=== PATIENT | female | born 1990 | race Caucasian/White ===

== ENCOUNTER 2019-02-10 07:12 | Emergency (ER) | payer BC ==
[~2019-02-10] VITALS: Ht 165.1 cm; Wt 82.6 kg
[2019-02-10 07:23] VITALS: BP_SYST 141
--- NOTE | 2019-02-10 07:31 | NUR ---
Patient to ER bed 7 to gown for evaluation. Side rails up. Report given to Rosaura GRIJALVA.
--- NOTE | 2019-02-10 07:35 | NUR ---
Patient presented to ER with pain S/P tonsilectomy 7 days ago. Patient A&Ox4, afebrile, back of throat red tonsilectomy site white, pain 7/10, nausea, patient speaking minimally, C/O coughing up blood last night, C/O difficulty Patient arrived with mother. Mother of patient states tonsilectomy was Sunday of last week out patient surgery. Mother of patient states pt was seen in for pain & swelling Sunday night same day of SX and Pt was seen in Urgent Care and recieved steroid injection and was told"take small sips of water". Mother of patient expressing frustration with Patients level of pain and discomfort.
--- NOTE | 2019-02-10 07:37 | NUR ---
ER Dr. Badillo at bedside examining patient.
[2019-02-10] MEDS ORDERED: NACL 0.9% 1,000 ML IV ONE (07:45)
[2019-02-10] MEDS ORDERED: KETOROLAC TROMETHAMINE 30 MG VIAL IVP ONE (08:00)
--- NOTE | 2019-02-10 08:15 | NUR ---
# 20 gauge angiocath placed to right AC. Use of asceptic technique. Opsite placed over site. Blood return noted. Blood for lab drawn from site. Flushed with 10 cc of normal saline. No evidence of infiltration noted. Patient tolerated well. Medicated per MD orders. IVF infusing with no s/s of infiltration at this time. Will cont to monitor
[2019-02-10 08:30] LABS: BASOPHILS % (AUTO) 0.3 % (0.0-2.0); EOSINOPHILS # (AUTO) 0.1 K/uL (0.0-0.4); EOSINOPHILS % (AUTO) 0.9 % (0.0-4.0); HEMOGLOBIN 13.4 g/dL (12.0-16.0); LYMPHOCYTES % (AUTO) 18.4 % (20.5-51.5); MEAN CORPUSCULAR HEMOGLOBIN 30 pg (27-31); MEAN CORPUSCULAR HGB CONC 34 % (32-36); MEAN CORPUSCULAR VOLUME 90 fL (79.0-98.0); NEUTROPHILS # (AUTO) 7.9 K/uL (1.8-7.7); NEUTROPHILS % (AUTO) 71.4 % (40.0-70.0); PLATELET COUNT (AUTO) 251 K/uL (130-430); RED BLOOD CELL COUNT(AUTO) 4.47 MIL/uL (4.2-6.2); RED CELL DISTRIBUTION WIDTH 13.4 % (9.0-15.0); WHITE BLOOD COUNT (AUTO) 11.1 K/uL (4.8-10.8)
[2019-02-10 08:31] LABS: BILIRUBIN,URINE 2+ (NEGATIVE); CLARITY/URINE CLEAR (CLEAR); COLOR,URINE YELLOW (YELLOW); GLUCOSE,URINE NEGATIVE (NEGATIVE); KETONES,URINE 3+ (NEGATIVE); LEUKOCYTE ESTERASE ,URINE NEGATIVE (NEGATIVE); NITRITE, URINE NEGATIVE (NEGATIVE); PROTEIN URINE NEGATIVE (NEGATIVE)
[2019-02-10 08:34] LABS: BLOOD, URINE TRACE (NEGATIVE)
[2019-02-10 08:42] LABS: CALCIUM 9.1 mg/dL (8.4-11.0); CREATININE 0.73 mg/dL (0.55-1.30); POTASSIUM 3.8 mmol/L (3.5-5.1)
[2019-02-10 08:44] LABS: BACTERIA,URINE RARE /HPF (None Seen); MUCUS,URINE 1+ /LPF (None Seen); RBC,URINE 0-3 /HPF (0-3); WBC,URINE 0-3 /HPF (0-3)
[2019-02-10 08:47] LABS: ALBUMIN 3.2 g/dL (3.4-4.8); TOTAL BILIRUBIN 0.8 mg/dL (0.0-1.0)
[2019-02-10 09:10] VITALS: BP_SYST 141
--- NOTE | 2019-02-10 09:10 | NUR ---
Patient given written and verbal discharge instructions and verbalizes understanding. ER MD discussed with patient the results and treatment provided. Patient in stable condition. ID arm band removed. IV catheter removed intact and dressing applied, no active bleeding. Rx of Augmentin given. Patient educated on pain management and to follow up with PMD. Pain Scale 2/10 tolerable for pt.. Opportunity for questions provided and answered. Medication side effect fact sheet provided.
== END 2019-02-10 09:10 | disposition home or self-care (01) ==
LOC: SED 07:12
DX: G89.18 Other acute postprocedural pain (principal); R07.0 Pain in throat
CPT/HCPCS: 36415; 70360; 80053; 81000; 85025; 96374; 99284; J1885; J7030

== ENCOUNTER 2019-04-04 07:34 | Emergency (ER) | payer BC ==
[~2019-04-04] VITALS: Ht 165.1 cm; Wt 79.4 kg
[2019-04-04 07:35] VITALS: BP_SYST 122
[2019-04-04 08:13] LABS: BILIRUBIN,URINE NEGATIVE (NEGATIVE); CLARITY/URINE CLEAR (CLEAR); COLOR,URINE YELLOW (YELLOW); GLUCOSE,URINE NEGATIVE (NEGATIVE); KETONES,URINE NEGATIVE (NEGATIVE); LEUKOCYTE ESTERASE ,URINE NEGATIVE (NEGATIVE); NITRITE, URINE NEGATIVE (NEGATIVE); PROTEIN URINE NEGATIVE (NEGATIVE); UROBILINOGEN,URINE 0.2 (0.2-1.0)
[2019-04-04] MEDS ORDERED: NACL 0.9% 1,000 ML IV ONE (08:15)
[2019-04-04] MEDS ORDERED: KETOROLAC TROMETHAMINE 30 MG VIAL IVP ONE (08:15)
[2019-04-04 08:23] LABS: BLOOD, URINE TRACE (NEGATIVE)
[2019-04-04 08:25] LABS: BASOPHILS % (AUTO) 0.5 % (0.0-2.0); EOSINOPHILS # (AUTO) 0.3 K/uL (0.0-0.4); EOSINOPHILS % (AUTO) 3.1 % (0.0-4.0); HEMATOCRIT 37.9 % (36-48); HEMOGLOBIN 12.8 g/dL (12.0-16.0); LYMPHOCYTES # (AUTO) 2.2 K/uL (1.0-5.5); LYMPHOCYTES % (AUTO) 23.7 % (20.5-51.5); MEAN CORPUSCULAR HEMOGLOBIN 31 pg (27-31); MEAN CORPUSCULAR HGB CONC 34 % (32-36); MEAN CORPUSCULAR VOLUME 91 fL (79.0-98.0); MONOCYTES # (AUTO) 0.7 K/uL (0.0-1.0); MONOCYTES % (AUTO) 7.6 % (1.7-9.3); NEUTROPHILS # (AUTO) 5.9 K/uL (1.8-7.7); NEUTROPHILS % (AUTO) 65.1 % (40.0-70.0); PLATELET COUNT (AUTO) 227 K/uL (130-430); RED BLOOD CELL COUNT(AUTO) 4.18 MIL/uL (4.2-6.2); RED CELL DISTRIBUTION WIDTH 13.6 % (9.0-15.0); WHITE BLOOD COUNT (AUTO) 9.1 K/uL (4.8-10.8)
[2019-04-04 08:36] LABS: BACTERIA,URINE RARE /HPF (None Seen); MUCUS,URINE 1+ /LPF (None Seen); RBC,URINE 0-3 /HPF (0-3); WBC,URINE 0-3 /HPF (0-3)
[2019-04-04 08:43] LABS: CALCIUM 8.9 mg/dL (8.4-11.0); CREATININE 0.81 mg/dL (0.55-1.30); POTASSIUM 4.2 mmol/L (3.5-5.1)
[2019-04-04 08:48] LABS: ALBUMIN 3.3 g/dL (3.4-4.8); TOTAL BILIRUBIN 0.4 mg/dL (0.0-1.0)
[2019-04-04] MEDS ORDERED: cefTRIAXone 250 MG in LIDOCAINE 1%, 20 ML MDV 0.9 ML IM ONE (10:00)
[2019-04-04] MEDS ORDERED: AZITHROMYCIN 250 MG TABLET PO ONE (10:00)
[2019-04-04 10:15] VITALS: BP_SYST 122
[2019-04-05 08:12] LABS: HEPATITIS A AB, IgM Negative (Negative); HEPATITIS B CORE AB, IgM Negative (Negative); HEPATITIS B SURFACE AG Negative (Negative)
[2019-04-08 16:00] LABS: CHLAMYDIA TRACHOMATIS NAA Negative (Negative)
[2019-04-08 16:01] LABS: NEISSERIA GONORRHOEAE NAA Negative (Negative)
[2019-04-08 20:38] LABS: HSV 2 IgG, TYPE SPECIFIC <0.91
== END 2019-04-04 10:15 | disposition home or self-care (01) ==
LOC: SED 07:34
DX: F41.9 Anxiety disorder, unspecified (principal); F43.9 Reaction to severe stress, unspecified; Z90.49 Acquired absence of other specified parts of digestive tract
CPT/HCPCS: 36415; 80053; 80074; 81000; 81025; 85025; 86592; 86695; 86696; 86710; 87491; 87591; 96372; 96374; 99284; J0696; J1885; J2001; J7030; Q0144

== ENCOUNTER 2019-05-14 00:51 | Emergency (ER) | payer BC ==
[~2019-05-14] VITALS: Ht 165.1 cm; Wt 83.5 kg
[2019-05-14 01:00] VITALS: BP_SYST 147
--- NOTE | 2019-05-14 01:02 | NUR ---
Patient to ER bed 1 to gown for evaluation. Side rails up.
--- NOTE | 2019-05-14 01:10 | NUR ---
ER Dr. Guo at bedside examining patient.
[2019-05-14] MEDS ORDERED: ONDANSETRON HCL 4 MG/2 ML VIAL IVP ONE (01:15)
[2019-05-14] MEDS ORDERED: NACL 0.9% 1,000 ML IV ONE (01:15)
[2019-05-14] MEDS ORDERED: KETOROLAC TROMETHAMINE 15 MG VIAL IVP ONE (01:15)
--- NOTE | 2019-05-14 01:15 | NUR ---
Pt came to the ED for abd pain fo vomiting and constipation since 2 days ago. Reports she has never felt this pain. However, reports that she has had issues with constipation since she was little. Reports that n/v/d or fever. No other complaints/injuries noted. Will cont. to monitor.
[2019-05-14 01:46] LABS: BASOPHILS % (AUTO) 0.3 % (0.0-2.0); EOSINOPHILS # (AUTO) 0.2 K/uL (0.0-0.4); EOSINOPHILS % (AUTO) 1.7 % (0.0-4.0); HEMATOCRIT 37.8 % (36-48); HEMOGLOBIN 12.9 g/dL (12.0-16.0); LYMPHOCYTES # (AUTO) 2.9 K/uL (1.0-5.5); LYMPHOCYTES % (AUTO) 28.1 % (20.5-51.5); MEAN CORPUSCULAR HEMOGLOBIN 31 pg (27-31); MEAN CORPUSCULAR HGB CONC 34 % (32-36); MEAN CORPUSCULAR VOLUME 90 fL (79.0-98.0); MONOCYTES # (AUTO) 0.7 K/uL (0.0-1.0); MONOCYTES % (AUTO) 6.7 % (1.7-9.3); NEUTROPHILS # (AUTO) 6.6 K/uL (1.8-7.7); NEUTROPHILS % (AUTO) 63.2 % (40.0-70.0); PLATELET COUNT (AUTO) 248 K/uL (130-430); RED BLOOD CELL COUNT(AUTO) 4.19 MIL/uL (4.2-6.2); RED CELL DISTRIBUTION WIDTH 13.3 % (9.0-15.0); WHITE BLOOD COUNT (AUTO) 10.5 K/uL (4.8-10.8)
[2019-05-14 01:50] LABS: BILIRUBIN,URINE 1+ (NEGATIVE); BLOOD, URINE 3+ (NEGATIVE); CLARITY/URINE CLEAR (CLEAR); COLOR,URINE YELLOW (YELLOW); GLUCOSE,URINE NEGATIVE (NEGATIVE); KETONES,URINE 1+ (NEGATIVE); LEUKOCYTE ESTERASE ,URINE NEGATIVE (NEGATIVE); NITRITE, URINE NEGATIVE (NEGATIVE); PROTEIN URINE NEGATIVE (NEGATIVE); UROBILINOGEN,URINE 0.2 (0.2-1.0)
[2019-05-14] MEDS ORDERED: FLUO40CA8 PO (01:50)
[2019-05-14] MEDS ORDERED: LORA1TAB PO (01:51)
[2019-05-14 01:57] LABS: BACTERIA,URINE MODERATE /HPF (None Seen); WBC,URINE 0-3 /HPF (0-3)
[2019-05-14 02:03] LABS: CALCIUM 8.5 mg/dL (8.4-11.0); CREATININE 0.78 mg/dL (0.55-1.30); POTASSIUM 3.5 mmol/L (3.5-5.1)
--- NOTE | 2019-05-14 02:03 | NUR ---
Pt went to CT scan via [facility]. Tolerated wel. Will cont. to monitor.
[2019-05-14 02:07] LABS: ALBUMIN 3.4 g/dL (3.4-4.8); TOTAL BILIRUBIN 0.5 mg/dL (0.0-1.0)
--- NOTE | 2019-05-14 02:09 | NUR ---
Pt returned from CT scan. Tolerated well. Will cont. to monitor.
[2019-05-14 02:10] LABS: PROTHROMBIN TIME 10.1 SECS (9.5-12.5)
--- NOTE | 2019-05-14 03:00 | NUR ---
Pt resting comfortably in bed, no acute distress. Will cont. to monitor.
--- NOTE | 2019-05-14 04:49 | NUR ---
Chaperoning pt during transvaginal ultrasound with tech. Tolerated well. Pt had to take 2 breaks from ultrasound for 2 BMs. ER made aware.
[2019-05-14 05:24] VITALS: BP_SYST 147
--- NOTE | 2019-05-14 05:24 | NUR ---
Patient given written and verbal discharge instructions and verbalizes understanding. ER MD Dr. Guo discussed with patient the results and treatment provided. Patient in stable condition. ID arm band removed. IV catheter removed intact and dressing applied, no active bleeding. Rx of zofran and norco given. Patient educated on pain management and to follow up with PMD. Pain Scale 0/10. Opportunity for questions provided and answered. Medication side effect fact sheet provided.
== END 2019-05-14 05:24 | disposition home or self-care (01) ==
LOC: SED 00:51
DX: N83.209 Unspecified ovarian cyst, unspecified side (principal); R10.31 Right lower quadrant pain; R11.2 Nausea with vomiting, unspecified; F32.9 Major depressive disorder, single episode, unspecified; F41.9 Anxiety disorder, unspecified; Z79.899 Other long term (current) drug therapy
CPT/HCPCS: 36415; 74176; 76830; 76857; 80053; 81000; 81025; 83690; 85025; 85610; 85730; 87086; 96361; 96374; 96375; 99284; J1885; J2405; J7030

== ENCOUNTER 2024-02-29 11:42 | Emergency (ER) | payer OTHER ==
[~2024-02-29] VITALS: Ht 165.1 cm; Wt 89.8 kg
[~2024-02-29 11:42] MED LIST: FLUO40CA8 PO; LORA1TAB PO; NAPR-688 PO; TRAM50TA2 PO
[2024-02-29 11:58] VITALS: BP_SYST 127; PULSE 85; RESP 18; TEMP 98.2; O2SAT 99
[2024-02-29 12:27] LABS: BASOPHILS % (AUTO) 0.3 % (0.0-2.0); EOSINOPHILS # (AUTO) 0.2 K/uL (0.0-0.4); EOSINOPHILS % (AUTO) 1.7 % (0.0-4.0); HEMATOCRIT 42.3 % (36-48); HEMOGLOBIN 14.1 g/dL (12.0-16.0); LYMPHOCYTES # (AUTO) 2.1 K/uL (1.0-5.5); LYMPHOCYTES % (AUTO) 19.1 % (20.5-51.5); MEAN CORPUSCULAR HEMOGLOBIN 29 pg (27-31); MEAN CORPUSCULAR HGB CONC 33 % (32-36); MEAN CORPUSCULAR VOLUME 88 fL (79.0-98.0); MONOCYTES # (AUTO) 0.6 K/uL (0.0-1.0); MONOCYTES % (AUTO) 5.8 % (1.7-9.3); NEUTROPHILS # (AUTO) 7.9 K/uL (1.8-7.7); NEUTROPHILS % (AUTO) 73.1 % (40.0-70.0); PLATELET COUNT (AUTO) 265 K/uL (130-430); RED BLOOD CELL COUNT(AUTO) 4.81 MIL/uL (4.2-6.2); RED CELL DISTRIBUTION WIDTH 13.8 % (9.0-15.0); WHITE BLOOD COUNT (AUTO) 10.8 K/uL (4.8-10.8)
[2024-02-29 12:34] LABS: CALCIUM 9.3 mg/dL (8.4-11.0); CREATININE 0.99 mg/dL (0.55-1.30); POTASSIUM 4.2 mmol/L (3.5-5.1)
[2024-02-29] MEDS: NACL 0.9% 1,000 ML IV ONE (13:15)
[2024-02-29] MEDS: MECLIZINE HCL 25 MG TABLET (ANITVERT) PO ONE (13:17)
[2024-02-29] MEDS ORDERED: MECL-261 PO (13:25)
[2024-02-29 13:56] VITALS: BP_SYST 127; PULSE 85; RESP 18; TEMP 98.2; O2SAT 99
== END 2024-02-29 13:58 | disposition home or self-care (01) ==
LOC: SED 11:42
DX: F19.930 Other psychoactive substance use, unspecified with withdrawal, uncomplicated (principal); R42 Dizziness and giddiness; Z79.899 Other long term (current) drug therapy; Z79.2 Long term (current) use of antibiotics
CPT/HCPCS: 99283; 96360; 80048; 85025; 36415; J7030; J8597